=== PATIENT | male | born 1970 | race Caucasian/White ===

== ENCOUNTER 2020-04-22 12:54 | Inpatient (IN) ==
[2020-04-22] MEDS ORDERED: AZITHROMYCIN 250 MG TAB PO ONE (16:09)
[2020-04-22] MEDS ORDERED: ASPIRIN 81 MG CHEW ONE (16:09)
[2020-04-22] MEDS ORDERED: cefTRIAXone SODIUM 1000MG/50ML D5W IV ONE (16:09)
[2020-04-22] MEDS ORDERED: OPTIRAY 320 125ml IV ONE (17:27)
[2020-04-22 18:54] LABS: D Dimer 300 ug/L FEU (0-500)
[2020-04-22 19:39] LABS: Appearance Urine Clear (Clear); Bilirubin Urine Negative (Negative); Blood Urine Negative (Negative); Color Urine Yellow; Glucose Urine UA Negative (Negative); Ketones Urine Negative (Negative); Leukocyte Esterase Urine Negative (Negative); Nitrite Urine Negative (Negative); Protein Urine Negative (Negative); Specific Gravity Urine 1.018 (1.000-1.030); Urobilinogen Urine Negative (Negative)
[2020-04-22 19:40] LABS: Epithelial Cell Urine Auto 0-5 /lpf (0-5); RBC Urine Automated 0-4 /hpf (0-4)
[2020-04-22 19:41] LABS: Bacteria Urine Automated Negative (Negative); Mucus Urine Present (None Prsent)
[2020-04-22 19:52] LABS: Alanine Aminotransferase 45 U/L (12-78); Albumin Globulin Ratio 1.2 (0.9-2); Albumin Level 3.9 gm/dl (3.4-5.0); Alkaline Phosphatase 113 U/L (45-117); Aspartate Aminotransferase 20 U/L (15-37); BUN Creatinine Ratio 10.8 (10-20); Bilirubin,Total 0.6 mg/dl (0.2-1); Blood Urea Nitrogen 11 mg/dl (7-18); Calcium 8.3 mg/dl (8.5-10.1); Carbon Dioxide 30 mmol/L (21-32); Chloride 106 mmol/L (98-107); Chol HDL Ratio 4; Cholesterol 205 mg/dl (0-200); Est GFR (African American) 101.1; Est GFR (Non-African American) 87.2; Globulin 3.3 gm/dl (2.5-4.0); Glucose 86 mg/dl (70-99); HDL Cholesterol 49 mg/dl; LDL Cholesterol Calculated 126 mg/dl; Magnesium 2.2 mg/dl (1.8-2.4); Potassium 3.9 mmol/L (3.5-5.1); Sodium 139 mmol/L (136-145); Total Protein 7.2 gm/dl (6.4-8.2); Triglycerides 150 mg/dl (0-150); Troponin I < 0.015 ng/ml (0-0.045); VLDL Cholesterol 30 mg/dl
[2020-04-22 20:11] LABS: Basophils # (auto) 0.01 K/uL (0-0.2); Basophils % (auto) 0.5 %; Eosinophils # (auto) 0.09 K/uL (0-0.5); Eosinophils % (auto) 4.3 %; Hemoglobin 15.9 g/dL (14.0-18.0); Lymphocytes # (auto) 0.97 K/uL (1.2-3.4); Mean Corpuscular Hemoglobin 31.3 pg (25-34); Mean Corpuscular Hgb Conc 35.3 g/dL (32-36); Mean Corpuscular Volume 88.6 fL (80-100); Mean Platelet Volume 9.1 fL (7.4-10.4); Monocytes % (auto) 14.2 %; Neutrophils # (auto) 0.74 K/uL (1.4-6.5); Platelet Count 133 K/uL (130-400); RDW Coefficient of Variation 12.7 % (11.5-14.5); RDW Standard Deviation 40.9 fL (36.4-46.3); Red Blood Count 5.08 M/uL (4.7-6.1); White Blood Count 2.11 K/uL (4.8-10.8)
[2020-04-22 20:15] LABS: Partial Thromboplastin Ratio 1.2; Partial Thromboplastin Time 32.2 Seconds (21.0-31.0); Prothrombin Time 10.5 Seconds (9.0-12.0)
--- NOTE | 2020-04-22 21:20 | XRay Report ---
XR chest 1V portable CLINICAL HISTORY: Shortness of breath.] Covid 19 positive patient COMPARISON STUDY: No previous studies for comparison. FINDINGS: The cardiac and mediastinal contours are normal. There is no focal pulmonary consolidation. There is no failure. There are no pleural effusions. IMPRESSION: No active disease in the chest. ACT 112: Negative or not required by law. Electronically signed by: Chaz Arguello M.D. 04/22/2020 3:27 PM
--- NOTE | 2020-04-22 21:21 | CT Scan Report ---
CT head/brain wo con CLINICAL HISTORY: Right arm and facial numbness. Possible acute stroke COMPARISON STUDY: No previous studies for comparison. TECHNIQUE: Axial CT of the brain is performed from the vertex to the skull base. IV contrast was not administered for this examination. A dose lowering technique was utilized adhering to the principles of ALARA. CT DOSE: FINDINGS: No intra or extra-axial mass lesions are visualized. There is no CT evidence of acute cortical infarc tion. There is no evidence of midline shift. There is no acute hemorrhage. No calvarial fractures ar e visualized. There is no evidence of pathologic ventricular dilatation. There is no evidence of acute sinusitis IMPRESSION: No acute intracranial findings ACT 112: Negative or not required by law. Electronically signed by: Chaz Arguello M.D. 04/22/2020 2:22 PM
--- NOTE | 2020-04-22 21:21 | CT Scan Report ---
CT angio head w con CLINICAL HISTORY: Right arm and facial numbness. Possible acute stroke TECHNIQUE: CT angiography of the head was performed in a dynamic helical fashion during intravenous a dministration of 119 cc of Optiray 320. MIP imaging was performed. A dose lowering technique was util ized adhering to the principles of ALARA. CT DOSE: COMPARISON STUDY: No previous studies for comparison. FINDINGS: There are no lesion suspicious for aneurysm. There are no major intracranial branch occlusi ons. The dural venous sinuses appear patent. IMPRESSION: Normal study. ACT 112: Negative or not required by law. Electronically signed by: Chaz Arguello M.D. 04/22/2020 2:30 PM
--- NOTE | 2020-04-22 21:27 | CT Scan Report ---
CT angio neck w con CLINICAL HISTORY: Right arm and facial numbness. Possible acute stroke COMPARISON STUDY: No previous studies for comparison. TECHNIQUE: CT angiography was performed from the aortic arch to the skull base. MIP imaging was perfo rmed. The patient was scanned in a dynamic helical fashion during intravenous administration of cc of Optiray 320. A dose lowering technique was utilized adhering to the principles of ALARA. CT DOSE: Technique: CT angiogram of the carotid and vertebral arteries was obtained using intravenous contrast and 3-D reconstruction. NASCET criteria was utilized. Findings: There are right apical pulmonary airspace opacities, possibly representing a pneumonia. This measures 2.5 cm. A two-month follow-up chest CT scan is recommended. The right carotid revealed no evidence of aneurysm and no evidence of dissection. There is no evidenc e of hemodynamic significant stenosis. The left carotid revealed no evidence of hemodynamic significant stenosis. There is no evidence of an eurysm. There is no evidence of dissection. There is no evidence of hemodynamically significant vertebral stenosis. There is no evidence of verte bral dissection. IMPRESSION: 1. No evidence of hemodynamically significant carotid or vertebral artery stenosis. No evidence of di ssection. 2. 2.5 cm groundglass opacity within the right upper lobe medially. This may represent an incidental pneumonia. A two-month follow-up chest CT scan is recommended. ACT 112: Negative or not required by law. Electronically signed by: Chaz Arguello M.D. 04/22/2020 2:26 PM
[2020-04-22 23:01] LABS: iSTAT Hemoglobin 15.3 g/dl (14.0-18.0); iSTAT Ionized Calcium 1.19 mmol/l (1.12-1.32); iSTAT Potassium 3.9 mmol/L (3.3-5.0)
[2020-04-22] MEDS ORDERED: ACETAMINOPHEN 325 MG TAB PO PRN (23:48)
[2020-04-23] MEDS ORDERED: PHARMACIST DISCHARGE MED REC CONSULT PRN (00:01)
[2020-04-23] MEDS ORDERED: ENOXAPARIN INJ 40 MG/0.4 ML SYR SQ SCH (00:30)
[2020-04-23 07:28] LABS: Hematocrit (blood only) 44.4 % (42-52); Hemoglobin 15.4 g/dL (14.0-18.0); Mean Corpuscular Hemoglobin 30.9 pg (25-34); Mean Corpuscular Hgb Conc 34.7 g/dL (32-36); Mean Platelet Volume 9.5 fL (7.4-10.4); Platelet Count 134 K/uL (130-400); RDW Coefficient of Variation 12.9 % (11.5-14.5); RDW Standard Deviation 41.9 fL (36.4-46.3); Red Blood Count 4.99 M/uL (4.7-6.1); White Blood Count 1.92 K/uL (4.8-10.8)
[2020-04-23 07:55] LABS: Estimated Average Glucose 100 mg/dl; Hemoglobin A1C 5.1 % (4.5-5.6)
[2020-04-23 07:58] LABS: Basophils # (auto) 0.01 K/uL (0-0.2); Basophils % (auto) 0.5 %; Eosinophils # (auto) 0.08 K/uL (0-0.5); Eosinophils % (auto) 4.2 %; Immature Granulocytes # (auto) 0.01 K/uL (0.00-0.02); Immature Granulocytes % (auto) 0.5 %; Lymphocytes # (auto) 0.86 K/uL (1.2-3.4); Lymphocytes % (auto) 44.8 %; Monocytes % (auto) 15.6 %; Neutrophils # (auto) 0.66 K/uL (1.4-6.5); Neutrophils % (auto) 34.4 %
[2020-04-23 08:05] LABS: Albumin Level 3.7 gm/dl (3.4-5.0); BUN Creatinine Ratio 12.9 (10-20); Calcium 8.8 mg/dl (8.5-10.1); Creatinine Clr Calc Pharmacy 101.4 ml/min; Est GFR (African American) 103.6; Est GFR (Non-African American) 89.4; Magnesium 2.2 mg/dl (1.8-2.4)
[2020-04-23 08:09] LABS: Albumin Globulin Ratio 1.3 (0.9-2); Bilirubin,Total 0.7 mg/dl (0.2-1); Globulin 2.8 gm/dl (2.5-4.0); Phosphorus 3.2 mg/dl (2.5-4.9); Total Protein 6.5 gm/dl (6.4-8.2)
[2020-04-23] MEDS ORDERED: ASPIRIN 81 MG ECTAB PO SCH (09:00)
[2020-04-23] MEDS ORDERED: AZITHROMYCIN 250 MG TAB PO SCH (09:00)
--- NOTE | 2020-04-23 10:42 | Electrocardiogram Report ---
Test Reason : Blood Pressure : / mmHG Vent. Rate : 068 BPM Atrial Rate : 068 BPM P-R Int : 164 ms QRS Dur : 086 ms QT Int : 396 ms P-R-T Axes : 048 011 038 degrees QTc Int : 421 ms Normal sinus rhythm Normal ECG No previous ECGs available Confirmed by Connor Silva ([id number]) on 04/23/2020 10:41:39 AM Referred By: REFERRED SELF Confirmed By:Connor Silva
--- NOTE | 2020-04-23 12:31 | Magnetic Resonance Report ---
MRI OF THE BRAIN WITHOUT CONTRAST CLINICAL HISTORY: stroke like symptoms COMPARISON STUDY: Head CT and CTA of the head April 22, 2020. TECHNIQUE: Utilizing a 1.5 [place] magnet and dedicated coil, multiplanar, multiecho imaging of the bra in was performed without IV contrast. FINDINGS: Note is made of a few punctate hyperintense foci within the lateral aspect of the left thal amus shown best on axial diffusion weighted sequence image 12 of 24. These measure up to 3 mm. These are hypointense on the ADC map. There is no mass effect. There may be subtle corresponding T2 hyperin tensity. No additional foci of restricted diffusion are noted. Brain volume is normal. Ventricular sy stem is normal. Basal cisterns are patent. There are no extra-axial collections. A 6 mm T2 hyperinten se focus within the left aspect of the aleta favors an old lacunar infarct. A few small white matter T 2 hyperintense foci suggest mild small vessel disease. No intracranial masses identified on this unen hanced exam. There is a mucous retention cyst within the left maxillary sinus. Orbits are unremarkabl e on this unenhanced examination. IMPRESSION: 1. A few punctate hyperintense foci within the lateral aspect of the left thalamus that measure up to 3 mm. While not definitive, these favor punctate acute infarcts. No mass effect or hemorrhage. 2. Suspected old lacunar infarct within the left aspect of the aleta. 3. A few small white matter T2 hyperintense foci which favor mild small vessel disease. ACT 112: Negative or not required by law. Electronically signed by: Arturo Purdy M.D. 04/23/2020 12:30 PM
--- NOTE | 2020-04-23 14:24 | History and Physical Report ---
DATE OF ADMISSION: 04/23/2020 NEUROLOGY CONSULTATION NOTE CHIEF COMPLAINT: Right-sided paresthesias, predominantly involving the face and arm. HISTORY OF PRESENT ILLNESS: A 50-year-old male with no known past medical history, presented to the Emergency Department yesterday for paresthesias involving the right side. The patient woke yesterday around 5:30 in the morning, he was fine upon going to sleep, 2 nights prior. Upon awakening yesterday, he noted tingling in the right hand which progressed up to the elbow. He also noticed it in the right side of the face as well as possibly on the left side of the face. He also noted some difficulty finding his words. He had no headache or vision changes. He did admit to feeling weak and run down as well as feeling lightheaded. He did have an exposure to the coronavirus over 10 days ago. The patient was admitted to the hospital for stroke evaluation. Neurology was consulted for further evaluation. ALLERGIES: No known drug allergies. PAST MEDICAL HISTORY: The patient denies any known past medical history. PAST SURGICAL HISTORY: None. FAMILY HISTORY: No known or pertinent family history. SOCIAL HISTORY: He is a nonsmoker, denies alcohol. REVIEW OF SYSTEMS: Review of systems was conducted and negative except as noted above in the HPI. PHYSICAL EXAMINATION: VITAL SIGNS: Blood pressure 121/82, pulse is 63, respiratory rate 18, temperature is 37.1 degrees Celsius, oxygen saturation is 95% on room air. DIAGNOSTIC TESTING AND LABORATORY VALUES: WBC 1.92, hemoglobin 15.4, platelet count is 134. INR is 1.0. Sodium is 140, potassium is 4.0, chloride 107, BUN and creatinine are normal. Glucose 85. Hemoglobin A1c 5.1. AST and ALT are normal. Troponin is negative. LDL cholesterol is 137, HDL cholesterol is 46. Procalcitonin is pending. Urinalysis showed positive urine mucus, otherwise negative. COVID testing was positive. IMAGING: Head CT noncontrast showed no acute intracranial findings. Head and neck CTA showed no evidence of a large vessel occlusion or high-grade stenosis. A 2.5 cm ground-glass opacity within the right upper lobe medially. This may represent an incidental pneumonia. ASSESSMENT AND PLAN: A 50-year-old male with no known past medical history, admitted to the hospital with COVID. He has noted intermittent tingling or paresthesias in the face as well as in the right upper arm. Otherwise no other noted neurologic deficits. Agree with obtaining an MRI brain with and without contrast. Would start aspirin for now. Otherwise, continue telemetry while inpatient. Agree with transthoracic echocardiogram. We will follow up MRI brain. Otherwise, we will be able to follow up with Neurology as an outpatient in 2 months.
--- NOTE | 2020-04-23 14:36 | Hospitalist Progress Note ---
Date of Service April 23, 2020 Assessment & Plan (1) CVA (cerebral vascular accident): Acute CVA: -MRI Brain: A few punctate hyperintense foci within the lateral aspect of the left thalamus that measure up to 3 mm. While not definitive, these favor punctate acute infarcts. No mass effect or hemorrhage. Suspected old lacunar infarct within the left aspect of the aleta. A few small white matter T2 hyperintense foci which favor mild small vessel disease. -Head CTA:Normal study. -Neck CTA:No evidence of hemodynamically significant carotid or vertebral artery stenosis. No evidence of dissection. 2.5 cm groundglass opacity within the right upper lobe medially. This may represent an incidental pneumonia. A two-month follow-up chest CT scan is recommended. -Monitor in Tele -LDL:137 -Plan to get ECHO as outpatient--Ok with Neurology -HbA1C:5.1 Speech and swallow eval and PT eval completed Started on aspirin 81mg, Lipitor 40mg daily Neuro checks Appreciate Neurology Input Allow permissive HTN in setting of acute CVA Needs follow up Neurology in 6-8 weeks as outpatient (2) Neutropenia: COVID 19 Neutropenia likely due to COVID No Hypoxia COVID Screen: Positive CXR:No active disease in the chest. Procalcitonin: <0.05 Troponin negative CRP:< 0.29 D-Dimer: 300 Blood Cultures pending Saturating 97% on room air Currently treatment for COVID-19 not indicated. Continue Isolation precautions--Airborne/Contact No indication for antibiotics currently Advised to get repeat CBC in 1 week as outpatient and if persistent leukopenia, advised to follow-up with hematology as outpatient. Elevated blood pressure Likely situational Monitor DVT Px: Lovenox SQ Code Status Full Code Disposition Plan to discharge home today Admission and Anticipated Discharge Date Admission Date: April 22, 2020 Subjective Patient is seen and examined at bedside Reports right facial/arm tingling and numbness which is intermittent and worsens with movement Denies chest pain, shortness of breath, dizziness, nausea, cough, abdominal pain, diarrhea Discussed with neurology today Offers no other complaints Review of Systems Review of Systems: All systems reviewed & are unremarkable except as noted in HPI & below Physical Exam Physical Exam: Physical Exam: Vitals signs as noted above General Appearance:Moderately built and nourished, no apparent distress Head: normocephalic, Atraumatic Eyes: normal inspection, EOMI, PERRL Neck: supple, Trachea midline Respiratory/Chest: Normal breath sounds, CTA, No accessory muscle use Cardiovascular: S1, S2, No murmur Abdomen/GI:Soft, Non tender, Bowel sounds present Extremities/Musculoskelatal:normal inspection, no edema Neurologic/Psych:AAOX3, Normal Strength, normal sensation Skin: normal color, warm Results & Data Results & Data ([facility]) Vital Signs (Past 12 Hours) Vital Signs Temp Pulse Resp BP Pulse Ox 04/23/20 12:18 37.1 C 70 18 132/88 97 04/23/20 07:51 37.1 C 63 18 121/82 95 04/23/20 03:54 37.0 C 78 18 120/75 98 Laboratory Results Short CBC 04/22/20 04/23/20 Range/Units 13:28 06:27 WBC 2.11 L 1.92 L (4.8-10.8) K/uL Hgb 15.9 15.4 (14.0-18.0) g/dL Hct 45.0 44.4 (42-52) % Plt Count 133 134 (130-400) K/uL BMP 04/22/20 04/23/20 13:28 06:27 Sodium 139 140 Potassium 3.9 4.0 Chloride 106 107 Carbon Dioxide 30 27 BUN 11 13 Creatinine 0.99 0.97 Glucose 86 85 Calcium 8.3 L 8.8 Cardiac Enzymes 04/22/20 Range/Units 13:28 Troponin I < 0.015 (0-0.045) ng/ml Liver Function 04/22/20 04/23/20 Range/Units 13:28 06:27 Total Bilirubin 0.6 0.7 (0.2-1) mg/dl AST 20 21 (15-37) U/L ALT 45 36 (12-78) U/L Alkaline Phosphatase 113 99 (45-117) U/L Albumin 3.9 3.7 (3.4-5.0) gm/dl Urine 04/22/20 Range/Units 13:47 Urine Color Yellow Urine Appearance Clear (Clear) Urine pH 5.0 (4.5-7.5) Ur Specific [place] 1.018 (1.000-1.030) Urine Protein Negative (Negative) Urine Glucose (UA) Negative (Negative)
[2020-04-23] MEDS ORDERED: STROKE PATIENT DISCHARGE STA (16:58)
--- NOTE | 2020-04-23 17:19 | Pharmacy Report ---
Pharmacist Stroke Counseling - Date of Service April 23, 2020 - Scope: Pharmacy has been consulted to provide medication discharge counseling for this patient admitted with ischemic stroke as per the Pharmacist Discharge Counseling for Stroke Patients Protocol. - Medications on Discharge: Home Medications Medication Instructions Recorded Confirmed ibuprofen 400 mg PO Q6H PRN 04/22/20 04/22/20 multivitamin 1 tab PO DAILY 04/22/20 04/22/20 New Rx's Medication Instructions Recorded aspirin 81 mg PO QAM 30 Days #30 tab 04/23/20 atorvastatin [Lipitor] 40 mg PO DAILY #30 tab 04/23/20 - Action: The above medications, specifically ones for stroke treatment/prophylaxis, have been reviewed in detail with the patient and/or patient circulation representative(s) prior to discharge. This includes indication, common adverse reactions, drug interactions, and medication administration. Medication counseling has been employed using the teach-back method to ensure understanding. - Outcome: The patient and/or patient circulation representative(s) have demonstrated understanding of the medications. Additional comments: Spoke over the phone with Pt today. Reviewed new medications to prevent stroke including Aspirin and Atorvastatin. Discussed why they are being used and common side effects in great detail. Reviewed how to use the medications, what to do if doses are missed, common drug interactions, common side effects, what to watch out for while using the medications, and how to store the medications. Pt verbalized understanding and restated the worthy points of each medication. Thank you for allowing pharmacy to be involved in the care of this patient. Please call [phone] with any additional questions
--- NOTE | 2020-04-23 17:34 | Discharge Summary ---
Date of Service April 23, 2020 Admission HPI Per Admitting Provider Chief complaint: R face and R arm numbness, +COVID HPI: Mr. Choi is a 50-year-old gentleman, with no significant past medical history, who presents today with right face and right arm numbness starting this morning. Patient felt that it was getting worse, and therefore called [facility], he was advised to present to emergency room. In the emergency room he reports that he was stumbling with words when he talked to ED physician. Now he reports that he actually feels quite well and thinks that his numbness is actually getting better. Denies any fevers, chills, chest pain, shortness of breath. He denies any weakness. Denies any headache or blurry vision. Denies any abdominal pain, nausea vomiting, diarrhea. Patient was diagnosed with Covid 19 in emergency room. Patient reports that on Friday, 3 days ago he was in contact with person who was later diagnosed with Covid. On he got tested however he does not have results back yet. He denies any symptoms of COVID-19/any flulike symptoms. Given concern for stroke in emergency room, patient underwent CT head, CTA head and neck which was overall unremarkable. On CT however there is concern for pneumonitis, chest x-ray ordered, antibiotics azithromycin and Rocephin to be started by ED physician. Patient also to be started on aspirin for his strokelike symptoms. MRI brain was not obtained at this point. Admission Exam Per Admitting Provider Physical Exam: Vital signs: Constitutional: WD/WN male in NAD HEENT: NC/AT, PERRL, EOMI, oropharynx normal, nonicteric sclera Neck: Supple Respiratory: CTAB no wheezing, rhonchi or crackles, no respiratory distress Cardiovascular: RRR, no murmurs noted, no lower extremity edema GI: normal bowel sounds, abdomen soft, non-tender, non-distended MSK: NC/ AT, no LE edema, moves extremities spontaneously Skin: warm, dry, no rashes or lesions Neuro/Psych: alert and oriented x3, no facial asymmetry, speech fluent, moves extremities spontaneously, no sensory loss noted, gait not assessed Principal Diagnosis Acute cerebrovascular accident COVID-19 infection Neutropenia Discharge Data Allergies Allergy/AdvReac Type Severity Reaction Status Date / Time No Known Allergies Allergy Mild NONE Unverified 12/05/20 17:44 Consultations 04/22/20 23:48 Consult Neurology Routine 04/23/20 00:02 Consult Case Management - Discharge Planning Routine Procedures Performed -MRI Brain: A few punctate hyperintense foci within the lateral aspect of the left thalamus that measure up to 3 mm. While not definitive, these favor punctate acute infarcts. No mass effect or hemorrhage. Suspected old lacunar infarct within the left aspect of the aleta. A few small white matter T2 hyperintense foci which favor mild small vessel disease. -Head CTA:Normal study. -Neck CTA:No evidence of hemodynamically significant carotid or vertebral artery stenosis. No evidence of dissection. 2.5 cm groundglass opacity within the right upper lobe medially. This may represent an incidental pneumonia. A two-month follow-up chest CT scan is recommended. Ordered Studies 04/22/20 CT angio head w con Routine CT angio neck with con Routine CT head/brain wo con Routine 04/22/20 23:56 MR brain wo con Routine Hospital Course (1) CVA (cerebral vascular accident): Acute CVA: -MRI Brain: A few punctate hyperintense foci within the lateral aspect of the left thalamus that measure up to 3 mm. While not definitive, these favor punctate acute infarcts. No mass effect or hemorrhage. Suspected old lacunar infarct within the left aspect of the aleta. A few small white matter T2 hyperintense foci which favor mild small vessel disease. -Head CTA:Normal study. -Neck CTA:No evidence of hemodynamically significant carotid or vertebral artery stenosis. No evidence of dissection. 2.5 cm groundglass opacity within the right upper lobe medially. This may represent an incidental pneumonia. A two-month follow-up chest CT scan is recommended. -Monitor in Tele -LDL:137 -Plan to get ECHO as outpatient--Ok with Neurology -HbA1C:5.1 Speech and swallow eval and PT eval completed Started on aspirin 81mg, Lipitor 40mg daily Neuro checks Appreciate Neurology Input Allow permissive HTN in setting of acute CVA Needs follow up Neurology in 6-8 weeks as outpatient (2) Neutropenia: COVID 19 Neutropenia likely due to COVID No Hypoxia COVID Screen: Positive CXR:No active disease in the chest. Procalcitonin: <0.05 Troponin negative CRP:< 0.29 D-Dimer: 300 Blood Cultures pending Saturating 97% on room air Currently treatment for COVID-19 not indicated. Continue Isolation precautions--Airborne/Contact No indication for antibiotics currently Advised to get repeat CBC in 1 week as outpatient and if persistent leukopenia, advised to follow-up with hematology as outpatient. Elevated blood pressure Likely situational Monitor DVT Px: Lovenox SQ Code Status Full Code Disposition Plan to discharge home today Total Time Total Time Spent Total Time Spent (In Minutes): 40 minutes Total Time Includes: Examination of the Patient, Discharge Planning, Medication Reconciliation, Communication With Other Providers and Other Discharge Plan Discharge Items Patient Disposition: Home - Self-Care Reason For Visit: TINGLING ON R HAND AND FACE Discharge Diagnosis: Acute Stroke COVID 19 Infection Activity: Per Instructions section Exercise/Sports: Gradually increase as tolerated Non-emergency contact: Primary Care Provider and Neurologist Call non-emergency contact if: you have any medication questions, your symptoms worsen, your pain is not controlled, your pain is worsening, your pain is unusual for you, your pain is concerning for you and you have a fever Follow-up/Referrals: Rai Grimes DO [Primary Care Provider] - Papito Alex DO [Physician] - Diet: Heart Healthy Ambulatory Orders: Complete Blood Count with Diff (Routine) Timeframe: 1 Day Location: Determined by Patient Ordered By: Isael STYLES echo transthoracic complete (Routine) Timeframe: 2 Weeks Location: Determined by Patient Ordered By: Isael Sharma Addtl Attending Provider Instructions: Follow-up with your primary care physician Dr. Grimes in 1 week as advised Follow-up with your neurologist Dr. Taylor in 6-8 weeks as recommended Start taking aspirin 81 mg, Lipitor 40 mg daily as advised Keep monitoring for oxygen saturation at home using pulse oximeter and if oxygen saturation drops below 94%, consult your physician for further recommendations. Get ECHO and Blood Test (complete blood count with differential) in 1 week and follow-up with your physician with results. If your blood count shows persistence of low white blood cell count, consider following with your [employer] hcm developer for further evaluation and management. Your blood cultures are pending at the time of discharge. Follow-up with your physician for results. Seek immediate medical attention if your symptoms reoccur or worsen Risk Factors for Stroke: You can reduce your chances of stroke by working with your medical provider to adopt a healthy lifestyle. Some specific ways to lower your chance of stroke are: * If you are a smoker, now is the time to stop smoking cigarettes * If you are diabetic, improve the control of your blood sugars * Avoid excessive amounts of alcohol * Control high blood pressure * Lose weight if you are overweight * Be sure to lead an active lifestyle * Eat a healthy diet low in salt, cholesterol and fat You should know about other risk factors for stroke that you are unable to control. These include: * Age 55 years or older * Male gender * Certain racial groups: , or / * Family History of Stroke, Mini stroke or Heart Attack * Sickle Cell Disease Follow Up: It is important for you to keep your follow up appointments with your medical provider. Who to Call and When: Medical Emergencies: Call 911 immediately if you experience any of the following warning signs and symptoms of Stroke: * Sudden numbness or weakness of the face, arm or leg, especially on one side of the body * Sudden confusion, trouble speaking or understanding * Sudden trouble seeing in one or both eyes * Sudden trouble walking, dizziness, loss of balance or coordination * Sudden severe headache with no cause Do not delay calling 911 if you experience any warning signs or symptoms of a stroke. Delay in seeking medical attention may affect what treatments can be given to you. . Home Isolation COVID-19 Instructions The following information about Home Isolation is from the CDC Website: https://www.cdc.gov/coronavirus/2019-ncov/hcp/jmnvusud-pedsiml-pzehgp.html Stay home except to get medical care People who are mildly ill with COVID-19 are able to isolate at home during their illness. You should restrict activities outside your home, except for getting medical care. Do not go to work, school, or public areas. Avoid using public transportation, ride-sharing, or taxis. Separate yourself from other people and animals in your home People: As much as possible, you should stay in a specific room and away from other people in your home. Also, you should use a separate bathroom, if available. Animals: You should restrict contact with pets and other animals while you are sick with COVID-19, just like you would around other people. Although there have not been reports of pets or other animals becoming sick with COVID-19, it is still recommended that people sick with COVID-19 limit contact with animals until more information is known about the virus. When possible, have another member of your household care for your animals while you are sick. If you are sick with COVID-19, avoid contact with your pet, including petting, snuggling, being kissed or licked, and sharing food. If you must care for your pet or be around animals while you are sick, wash your hands before and after you interact with pets and wear a face mask. Call ahead before visiting your doctor If you have a medical appointment, call the healthcare provider and tell them that you have or may have COVID-19. This will help the healthcare providers office take steps to keep other people from getting infected or exposed. Wear a face mask You should wear a face mask when you are around other people (e.g., sharing a room or vehicle) or pets and before you enter a healthcare providers office. If you are not able to wear a face mask (for example, because it causes trouble breathing), then people who live with you should not stay in the same room with you, or they should wear a face mask if they enter your room. Cover your coughs and sneezes Cover your mouth and nose with a tissue when you cough or sneeze. Throw used tissues in a lined trash can. Immediately wash your hands with soap and water for at least 20 seconds or, if soap and water are not available, clean your hands with an alcohol-based hand smearer that contains at least 60% alcohol. Clean your hands often Wash your hands often with soap and water for at least 20 seconds, especially after blowing your nose, coughing, or sneezing; going to the bathroom; and before eating or preparing food. If soap and water are not readily available, use an alcohol-based hand smearer with at least 60% alcohol, covering all surfaces of your hands and rubbing them together until they feel dry. Soap and water are the best option if hands are visibly dirty. Avoid touching your eyes, nose, and mouth with unwashed hands. Avoid sharing personal household items You should not share dishes, drinking glasses, cups, eating utensils, towels, or bedding with other people or pets in your home. After using these items, they should be washed thoroughly with soap and water. Clean all high-touch surfaces everyday High touch surfaces include counters, tabletops, doorknobs, bathroom fixtures, toilets, phones, keyboards, tablets, and bedside tables. Also, clean any surfaces that may have blood, stool, or body fluids on them. Use a household cleaning spray or wipe, according to the label instructions. Labels contain instructions for safe and effective use of the cleaning product including precautions you should take when applying the product, such as wearing gloves and making sure you have good ventilation during use of the product. Monitor your symptoms Seek prompt medical attention if your illness is worsening (e.g., difficulty breathing).Beforeseeking care, call your healthcare provider and tell them that you have, or are being evaluated for, COVID-19. Put on a face mask before you enter the facility. These steps will help the healthcare providers office to keep other people in the office or waiting room from getting infected or exposed. Ask your healthcare provider to call the local or state health department. Persons who are placed under active monitoring or facilitated self- monitoring should follow instructions provided by their local health department or occupational health professionals, as appropriate. When working with your local health department check their available hours. If you have a medical emergency and need to call 911, notify the dispatch personnel that you have, or are being evaluated for COVID-19. If possible, put on a face mask before emergency medical services arrive. Discontinuing home isolation Patients with confirmed COVID-19 should remain under home isolation precautions until the risk of secondary transmission to others is thought to be low. The decision to discontinue home isolation precautions should be made on a vyah-hv-dtbs basis, in consultation with healthcare providers and state and [facility] health departments. Coronavirus disease 2019 (COVID-19) is a virus that causes a respiratory illness. It is caused by a coronavirus called 2019 novel coronavirus (2019- nCoV). There are many types of coronavirus. Coronaviruses are a very common cause of bronchitis. They may sometimes cause lung infection(pneumonia). Symptoms can range from mild to severe respiratory illness. These viruses are also foundin some animals. COVID-19 was first found in people in [facility], in late 2019. In 2020, several cases of COVID-19 have been confirmed in the [place] Public health officials are working to find the source. How the virus spreads is not yet fully known. It may be spread through droplets of fluid that a person coughs or sneezes into the air. It may be spread if you touch a surface with virus on it, such as a handle or object, and then touch your mouth. What are the symptoms of COVID-19? Some people have no symptoms or mild symptoms. Symptoms may appear 2 to 14 days after contact with the virus. Symptoms can include: Fever Coughing Trouble breathing What are possible complications from COVID-19? In many cases, this virus can cause infection (pneumonia) in both lungs. In some cases, this can cause . How is COVID-19 diagnosed? Your healthcare provider will ask about your symptoms. He or she will also ask about your recent travel and contact with sick people. Testing for the virus is only done through the [facility]. If yourhealthcare provider thinks you may have COVID- 19, he or she will work with your local health department and the CDC on testing. Follow all instructions from your healthcare provider. COVID-19 is diagnosed by: Nasal and throat swab. A cotton-tipped swab is wiped inside your nose or throat. This is done to check for viruses in your nasal mucus. Sputum culture. A small sample of mucus coughed from your lungs (sputum) is collected if you have a cough. It is checked for the virus. How is COVID-19 treated? There is currently no medicine to treat the virus. Treatment is done to help your body while it fights the virus. This is known as supportive care. Supportive care may include: Pain medicine. These include acetaminophen and ibuprofen. They are used to help ease pain and reduce fever. Bed rest. This helps your body fight the illness. For severe illness, you may need to stay in the hospital. Care during severe illness may include: IV (intravenous) fluids.These are given through a vein to help keep your body hydrated. Oxygen. Supplemental oxygen or ventilation with a breathing machine (ventilator) may be given. This is done to keep enough oxygen in your body. Are you at risk for COVID-19? If youve been to a place where people have been sick with this virus, you are at risk for infection. You are at risk if you: Recently traveled to an affected area Had contact with a sick person who recently traveled to this area Had contact with a person who was diagnosed with COVID-19 How can COVID-19 be prevented? There is no vaccine yet. The best prevention is to not have contact with the virus. The CDC advises that people should not travel to areas where there are COVID-19 outbreaks right now for any reason that is not urgent. To help prevent spreading the infection, wash your hands often, or use an alcohol-basedhand smearer. If you are in an area with COVID-19: Wash your hands often. Or use an alcohol-based hand smearer often. Only touch your eyes, nose, or mouth with clean hands. Dont have contact with people who are sick. Follow local instructions about being in public. For example, you may be told to not use public transport for a period of time. Stay away from markets that have live or animals. Wash your hands after touching any animals. Don't touch animals that may be sick. Dont share eating or drinking tools with sick people. Dont kiss someone who is sick. Clean surfaces often with disinfectant. If you were in an area with COVID-19 in the last 14 days: Call your healthcare provider. He or she can talk with local health staff to see what action may be needed. Follow all instructions from your provider. Take your temperature every morning and evening for at least 14 days. This is to check for fever. Keep a record of the readings. Keep watch for symptoms of the virus. Tell your provider right away if you have symptoms. If you were in an area with COVID-19 and have a fever or other symptoms: Dont panic. Keep in mind that other illnesses can cause similar symptoms. Stay away from work, school, and public places. Limit physical contact with family members. Don't kiss anyone or share eating or drinking utensils. Clean surfaces you touch with disinfectant. This is to help prevent the virus from spreading. Call your healthcare provider. Explain that you have been exposed to COVID-19 and have symptoms. Do this before going to any hospital. Wait for instructions. Keep in mind that healthcare staff may wear protective equipment such as masks, gowns, gloves, and eye protection. You may be put in a separate room. This is to prevent the possible virus from spreading. Tell the healthcare staff about recent travel. This includes local travel on public transport. Staff may need to find other people you have been in contact with. Follow all instructions the healthcare staff give you. If you have been diagnosed with COVID-19 Follow all instructions from your healthcare provider. Dont leave your home, except to get medical care. Call your healthcare providers office before going. They can prepare and give you instructions. This will help prevent the virus from spreading. Dont go to work, school, or public areas. Dont use public transport or taxis. Stay away from other people in your home. Have them wear face masks around you. Dont share household items or food. Wear a face mask if you can. This includes at home or in a medical facility. Cover your face with a tissue when you cough or sneeze. Throw the tissue away. Wash your hands. Wash your hands often. Caregivers should: Follow all instructions from healthcare staff. Wear a face mask and protective clothing as advised. Wash hands often. Keep track of the sick persons symptoms. Clean surfaces, fabrics, and laundry thoroughly. Keep other people away from the sick person. When to call your healthcare provider Call your healthcare provider: If youve recently traveled and have symptoms If you have been diagnosed with COVID-19 and your symptoms are worse To learn more To find out more about COVID-19, visit the CDC website at www.cdc.gov/coronavirus/2019-ncov/index.html. [employer]. [address] [place] [address]. All rights reserved. This information is not intended as a substitute for professional medical care. Always follow your healthcare professional's instructions. This information has been adapted from [employer] Pending Studies at Discharge: Yes Studies:: Blood Cultures Stand-Alone Forms: My [facility], Smoking Cessation Medications and DC Order Prescriptions: New aspirin 81 mg Tablet,Delayed Release (Dr/Ec) 81 mg PO QAM 30 Days Qty: 30 RF: 1 atorvastatin [Lipitor] 40 mg tablet 40 mg PO DAILY Qty: 30 RF: 1 Continued multivitamin Tablet 1 tab PO DAILY RF: 0 ibuprofen 200 mg Tablet 400 mg PO Q6H PRN (Reason: Pain) RF: 0 Discharge Orders: Discharge Order (Routine); Ordered 04/23/20 Ordered By: Isael Sharma Admission Data Admit Date/Time: 04/22/20 16:45 Attending Provider: Isael Sharma Admit Provider: Rudi Tariq Primary Care Provider: Rai Grimes Other Providers: Papito Alex Other Interventions: Discharge Summary Assessment (RN) Last Done: 04/23/20 17:05
[2020-04-23] MEDS ORDERED: cefTRIAXone SODIUM 2,000 MG in DEXTROSE 5% 50 ML IV SCH (18:00)
== END 2020-04-23 18:13 | disposition home or self-care (01) | DRG 64 ==
LOC: ED 12:54 → SUATTDRO 16:45 → 2E 16:45